=== PATIENT | female | born 1955 | race Caucasian/White ===

== ENCOUNTER → 2017-01-06 | Outpatient (CLI) | payer OTHER ==
[2017-01-06 11:39] LABS: HEMOGLOBIN 12.1 gm/dl (12.3-15.3); RED BLOOD COUNT 4.59 M/UL (4.00-5.10)
== END ==
LOC: LAB 09:54
PROVIDERS: Physician Assistant
DX: G89.18 Other acute postprocedural pain (principal); Z96.651 Presence of right artificial knee joint
CPT/HCPCS: 36415; 85025; 86140

== ENCOUNTER 2020-04-25 10:27 | Emergency (ER) | payer OTHER ==
[~2020-04-25 10:27] MED LIST: CEFUROXIME500 MG PO; LODINE CAP 300300 MG PO; ZOFRAN ODT 4 MG4 MG PO
[2020-04-25] MEDS ORDERED: TESSALON PERLE100 MG PO (14:41)
[2020-04-25] MEDS ORDERED: ATROVENT-HFA12.9 GM INH (14:41)
== END 2020-04-25 11:45 | disposition home or self-care (01) ==
LOC: ER1 10:27
DX: U07.1 COVID-19 (principal)
CPT/HCPCS: 71045; 87081; 87880; 99283; U0002

== ENCOUNTER → 2020-12-24 | Outpatient (CLI) | payer OTHER ==
[~2020-12-24] MED LIST changes: +ATROVENT-HFA12.9 GM INH; +TESSALON PERLE100 MG PO
== END ==
LOC: EXRD 09:44
DX: M79.642 Pain in left hand (principal); M79.641 Pain in right hand; M19.042 Primary osteoarthritis, left hand; M19.041 Primary osteoarthritis, right hand
CPT/HCPCS: 73130

== ENCOUNTER → 2021-01-07 | Outpatient (CLI) | payer OTHER | LOC: MAMO 15:07 | DX: Z12.31 Encounter for screening mammogram for malignant neoplasm of breast (principal) | CPT/HCPCS: 77063; 77067 ==

== ENCOUNTER → 2021-03-06 | Outpatient (CLI) | payer OTHER | LOC: RAD 12:27 | DX: M54.50 Low back pain, unspecified (principal); G89.29 Other chronic pain; M47.818 Spondylosis without myelopathy or radiculopathy, sacral and sacrococcygeal region | CPT/HCPCS: 72202 ==

== ENCOUNTER 2021-04-19 01:24 | Emergency (ER) | payer OTHER ==
[2021-04-19 03:31] LABS: RED BLOOD COUNT 4.7 M/UL (4.00-5.10); WHITE BLOOD COUNT 12.5 K/UL (4.5-11.0)
[2021-04-19 03:57] LABS: BUN/CREATININE RATIO 31 (0-10)
== END 2021-04-19 07:01 | disposition home or self-care (01) ==
LOC: ER1 01:24
PROVIDERS: Physician Assistant
DX: R10.9 Unspecified abdominal pain (principal); K21.9 Gastro-esophageal reflux disease without esophagitis; E03.9 Hypothyroidism, unspecified; Z90.49 Acquired absence of other specified parts of digestive tract
CPT/HCPCS: 80053; 81001; 83605; 83690; 85025; 87040; 93005; 96374; 96375; 99284; J1885; J2405; Q9967